=== PATIENT | female | born 1935 ===

== ENCOUNTER 2018-02-18 15:10 | Emergency (ER) | payer OTHER ==
[2018-02-18 16:04] VITALS: BP 172/111
--- NOTE | 2018-02-18 16:19 | UC ---
UC General HPI - HPI Summary HPI Summary: Per wash helper "Hx of LUQ pain onset this AM is resolved now; Pt noticed pain more when lying down on left side compared to right side, and less pain on either side when upright. Slight nausea started last night; worse this AM. No change bowel habits; hx GERD. Pt denies CP. PCP is not aware of pt SOB with exertion that she states she's had for "years". Pt resumed BP med this AM s/p being off from it for 2 weeks due to itchy rash". -She went to her primary care yesterday because of epigastric pain for the past several weeks. She was started on ranitidine. It does help. The left upper quadrant complain has completely resolved today. There is no vomiting. She was seen by campaign consultant in November. Had a biopsy of the rash and was told that it was from some medication that she is ingesting. So she stopped her blood pressure medicine on her own 2 weeks ago. Primary care doctor was very concerned about it and restart the hydrochlorothiazide 25 mg yesterday. She notes that the campaign consultant gave her 2 medicines to help the rash go away. She does think she was given prednisone in November. Now she thinks she takes methylprednisolone once a week. She can correlate the start of the stomach upset with start of this medicine. She denies any strokelike symptoms. No weakness numbing or tingling or slurred speech. - History of Current Complaint Chief Complaint: UCAbdominalPain Stated Complaint: NAUSEA Time Seen by Provider: 02/18/18 16:14 Pain Intensity: 0 - Allergy/Home Medications Allergies/Adverse Reactions: Allergies Allergy/AdvReac Type Severity Reaction Status Date / Time No Known Allergies Allergy Verified 02/18/18 16:04 Home Medications: Home Medications Bismuth Subsalicylate [Pepto-Bismol] 525 mg PO Q12HR PRN 02/18/18 [History Confirmed 02/18/18] Hydrochlorothiazide TAB* [Hydrodiuril TAB*] 25 mg PO DAILY 02/18/18 [History Confirmed 02/18/18] Levothyroxine TAB* [Synthroid TAB*] 50 mcg PO DAILY 02/18/18 [History Confirmed 02/18/18] PMH/Surg Hx/FS Hx/Imm Hx Previously Healthy: Yes Endocrine History: Thyroid Disease Cardiovascular History: Hypertension - Surgical History Surgical History: Yes Surgery Procedure, Year, and Place: appy, left thyroid benign growth - Family History Known Family History: Positive: Hypertension - Social History Alcohol Use: None Substance Use Type: None Smoking Status (MU): Never Smoked Tobacco Review of Systems Constitutional: Negative Skin: Negative Eyes: Negative ENT: Negative Respiratory: Negative Cardiovascular: Negative Gastrointestinal: Nausea Genitourinary: Negative Motor: Negative Neurovascular: Negative Musculoskeletal: Negative Neurological: Negative Psychological: Negative Is Patient Immunocompromised?: No All Other Systems Reviewed And Are Negative: Yes Physical Exam Triage Information Reviewed: Yes Completion Of Physical Exam Limited Due To: Other - RT arm Reg MD check manual 170/100 Appearance: Well-Appearing, No Pain Distress, Well-Nourished Vital Signs: Initial Vital Signs Temp 98.5 F 02/18/18 15:48 Pulse 76 02/18/18 15:48 Resp 18 02/18/18 15:48 BP 172/111 02/18/18 15:48 Pulse Ox 100 02/18/18 15:48 Vital Signs Reviewed: Yes Eye Exam: Normal ENT Exam: Normal ENT: Positive: Pharynx normal Neck exam: Normal Neck: Positive: Supple, Nontender, No Lymphadenopathy Respiratory: Positive: Lungs clear, Normal breath sounds, No respiratory distress, No accessory muscle use. Negative: Crackles, Rhonchi, Stridor, Wheezing Cardiovascular Exam: Normal Cardiovascular: Positive: RRR, No Murmur, Pulses Normal Abdomen Description: Positive: Nontender, Soft. Negative: CVA Tenderness (R), CVA Tenderness (L), Distended, Guarding, Hepatomegaly, Peritoneal Signs, Splenomegaly Musculoskeletal Exam: Normal Neurological Exam: Normal Psychological Exam: Normal Skin Exam: Normal Course/Dx - Course Course Of Treatment: Gerd w/ resolved LUQ pain. no change in BMs. no melena/ rectal bleeding. start PPI> may be related to what sounds like prednisone that was given for dermatitis. needs to disc w/ pcp and derm. -add lisnipril 10mgs. no known drug allergies reported. -she understood me well and is agreeable w/ plan. - Differential Dx - Multi-Symptom Differential Diagnoses: Other - GERD, uncontrolled HTN Provider Diagnoses: GERD, uncontrolled HTN Discharge - Sign-Out/Discharge Documenting (check all that apply): Discharge/Admit/Transfer - Discharge Plan Condition: Stable Disposition: HOME Prescriptions: Lisinopril TAB* [Prinivil TAB 10 MG*] 10 mg PO DAILY 30 Days #30 tab Omeprazole 20 mg PO DAILY 30 Days #30 capsule. Patient Education Materials: Gastroesophageal Reflux Disease (ED), Chronic Hypertension (DC) Referrals: Holley Noble PA [Primary Care Provider] - 5 Days Additional Instructions: -I'm prescribing a medicine called omeprazole. This is more effective than ranitidine for heartburn. However, it can have long-term effects and it is not recommended for long-term use if not needed. It sounds like here on a sort of prednisone for the rash. Is commonly known to cause heartburn and stomach upset. These doctor campaign consultant if this could be the cause. He continue to have discomfort, consideration should be given to a gastroenterology consult for possible endoscopy. Potential causes include ulcers and a bacteria called Helicobacter pylori. Her blood pressure continues to be very high despite restarting the hydrochlorothiazide 25 mg this week. I have added a medicine called lisinopril 10 mg. She takes daily. He should follow up with her primary care physician this week. I do not believe the hydrochlorothiazide 25 mg is effective enough to decrease the elevated blood pressure of 170/100. Follow-up via primary care doctor this week on these issues. If you develop left upper quadrant pain again, you should go to the emergency room. If you develope any chest pain you should go to the emergency room via 911. - Billing Disposition and Condition Condition: STABLE Disposition: Home
== END 2018-02-18 16:47 | disposition home or self-care (01) ==
LOC: UCCORT 15:10
DX: K21.9 Gastro-esophageal reflux disease without esophagitis (principal); I10 Essential (primary) hypertension; E03.9 Hypothyroidism, unspecified
CPT/HCPCS: 99212; G0463